=== PATIENT | female | born 1955 | race Caucasian/White ===

== ENCOUNTER 2018-03-10 06:57 | Emergency (ER) | payer BC, OTHER ==
[~2018-03-10] VITALS: Ht 160 cm; Wt 90.7 kg
[~2018-03-10 06:57] MED LIST: CELEXA PO; DEXILANT60 MG PO; ELAVIL PO; LABETALOL HCL200 MG PO; LIVALO2 MG; PREMARIN0.3 MG PO; URIBEL CAPSULE1 EACH PO; VALIUM5 MG; VICODIN ES 7.51 EACH; WELLBUTRIN XL300 MG PO; ZANTAC150 MG
--- OUTSIDE RECORDS SUMMARY | 2018-03-10 07:01 | XMS REPORT | Summary of Care ---
Author Author [facility] Address Unknown Phone Unavailable Encounter HQ Amir_eugenie([facility]) [id number] Date(s): 01/31/16 - 02/29/16 [facility] Discharge Disposition: Home or Self Care Attending Physician: Anurag King Vital Signs No data available for this section Problem List No data available for this section Allergies, Adverse Reactions, Alerts No data available for this section Medications No data available for this section Results No data available for this section Immunizations No data available for this section Procedures No data available for this section Social History No data available for this section Assessment and Plan No data available for this section
--- OUTSIDE RECORDS SUMMARY | 2018-03-10 07:01 | XMS REPORT | Summary of Care ---
Author Author [facility] Address Unknown Phone Unavailable Encounter HQ Jah_eugenie([facility]) [id number] Date(s): 03/27/16 - 04/25/16 [facility] Discharge Disposition: Home or Self Care [...]
--- OUTSIDE RECORDS SUMMARY | 2018-03-10 07:01 | XMS REPORT | Continuity of Care Document ---
Author Author [facility] Interface Address Unknown Phone Unavailable Problems Problem Status Onset Date Classification Date Reported Comments Source [facility] KNEE Active [facility] Medications Medication Details Route Status Patient Instructions Ordering Provider Order Date Source Allergies, Adverse Reactions, Alerts Substance Category Reaction Severity Reaction type Status Date Reported Comments Source Immunizations Immunization Date Given Site Status Last Updated Comments Source Results Order Name Results Value Reference Range Date Interpretation Comments Source Vital Signs Vital Sign Value Date Comments Source Encounters Location Location Details Encounter Type Encounter Number Reason For Visit Attending Provider ADM Date DC Date Status Source [facility] [place] [facility] [id number] Anurag King 12/30/2015 01/29/2016 [facility] [place] [facility] [place] [facility] [id number] Anurag King 01/31/2016 03/01/2016 [facility] [id number] Anurag King 03/27/2016 04/26/2016 [facility] Procedures Procedure Code Date Perfomer Comments Source
--- OUTSIDE RECORDS SUMMARY | 2018-03-10 07:01 | XMS REPORT | Summary of Care ---
Author Author [facility] Address Unknown Phone Unavailable Encounter HQ Amir_eugenie([facility]) [id number] Date(s): 12/30/15 - 01/28/16 [facility] Discharge Disposition: Home or Self Care Attending [...]
[2018-03-10] MEDS ORDERED: KETOROLAC TROMETHAMINE 30 MG/ML VIAL IV STA (07:14)
[2018-03-10] MEDS ORDERED: SODIUM CHLORIDE 0.9% 1000ML 1,000 ML IV SCH (07:15)
[2018-03-10 07:39] LABS: BASOPHILS # (AUTO) 0.1 (0.0-0.1); BASOPHILS % 0.5 % (0.0-1.0); EOSINOPHILS # (AUTO) 0.2 (0.0-0.4); EOSINOPHILS % 1.5 % (0.0-6.0); HEMATOCRIT 39.8 % (34.2-44.1); HEMOGLOBIN 13.5 g/dL (12.0-16.0); LYMPHOCYTES # (AUTO) 1.4 (1.0-3.2); LYMPHOCYTES % 13.6 % (18.0-39.1); MEAN CORPUSCULAR HGB CONC 33.9 g/dL (31-35); MEAN CORPUSCULAR VOLUME 94.3 fL (81-99); MONOCYTES # (AUTO) 0.7 (0.2-0.8); MONOCYTES % 6.8 % (4.4-11.3); PLATELET COUNT 216 x10e3/uL (140-360); RED BLOOD COUNT 4.22 x10e6/uL (3.6-5.1); RED CELL DISTRIBUTION WIDTH 13.1 % (11.7-14.4)
--- NOTE | 2018-03-10 07:50 | NUR ---
INFORMED PT OF MORPHINE ORDERS, PAIN LEVEL CURRENTLY 2/10, REFUSED MEDICATION AT THIS TIME.
[2018-03-10 07:51] LABS: BILIRUBIN,URINE NEGATIVE (NEGATIVE); CLARITY,URINE CLEAR (CLEAR); COLOR,URINE ORANGE (YELLOW); KETONES,URINE NEGATIVE (NEGATIVE); LEUKOCYTE ESTERASE ,URINE TRACE (NEGATIVE); NITRITE,URINE POSITIVE (NEGATIVE); PROTEIN,URINE DIPSTICK 1+ (NEGATIVE); URINE UROBILINOGEN 4 mg/dL (0.2 - 1)
[2018-03-10 07:57] LABS: BACTERIA,URINE RARE /HPF; EPITHELIAL CELLS,URINE FEW /LPF; WBC,URINE (MAN) 0-5 /HPF (0-5)
[2018-03-10 07:58] LABS: ALBUMIN/GLOBULIN RATIO 1.5 (0.8-2.0); ANION GAP 14.6 mmol/L (8-16); CALCIUM 9.7 mg/dL (8.4-10.2); CREATININE, SERUM 0.95 mg/dL (0.57-1.11); POTASSIUM 4.6 mmol/L (3.5-5.1); YEAST,URINE RARE
--- NOTE | 2018-03-10 08:07 | Diagnostic Imaging Report ---
EXAMINATION: CT of the abdomen and pelvis without contrast. TECHNIQUE: Spiral CT images of the abdomen and pelvis were performed from the lung bases to the lesser trochanters. No intravenous contrast was given per renal stone protocol. Coronal and sagittal reformatted images were obtained. COMPARISON: None. CLINICAL HISTORY:Left flank pain DISCUSSION: ABSENCE OF INTRAVENOUS CONTRAST DECREASES SENSITIVITY FOR DETECTION OF FOCAL LESIONS AND VASCULAR PATHOLOGY. ABDOMEN/PELVIS: LOWER THORAX: Linear scar or subsegmental atelectasis in the right lower lobe. HEPATOBILIARY:Hepatic parenchyma is diffusely hypoattenuating compatible with steatosis. No focal hepatic lesion. Status post cholecystectomy with metallic clips in the gallbladder fossa. SPLEEN: No splenomegaly. PANCREAS: No focal masses or ductal dilatation. ADRENALS: No adrenal nodules. KIDNEYS/URETERS: Mild left hydroureteronephrosis related to a 4 mm distal ureteral calculus (series 3 image 153). Mild perinephric inflammation. Punctate nonobstructing left upper pole renal calculus series 3 image 49. No right renal or right ureteral calculi. No solid or cystic gross renal mass lesions. Exophytic subcentimeter hypoattenuating lesion projecting from the lower pole of the right kidney is too small to further characterize though likely to represent a small cyst. PELVIC ORGANS/BLADDER: The urinary bladder is collapsed but otherwise unremarkable. The uterus is not identified and has presumably been resected. No adnexal mass. PERITONEUM/RETROPERITONEUM: No ascites. No pneumoperitoneum. LYMPH NODES: No pelvic sidewall, retroperitoneal, or mesenteric lymphadenopathy. VESSELS: The abdominal aorta is nonaneurysmal. Atherosclerotic calcification of the abdominal pelvic arterial system. Evaluation is otherwise limited in the absence of intravenous contrast. GI TRACT: The large bowel shows no evidence of distention or wall thickening the appendix is normal. There is no small bowel dilatation to suggest obstruction. BONES AND SOFT TISSUES: No focal soft tissue abnormalities. No osseous destructive lesions. Degenerative disc changes and facet arthropathy of the lumbar spine. IMPRESSION: 4 mm distal left ureteral calculus results in mild hydroureteronephrosis and perinephric inflammation. Hepatic steatosis. Atherosclerotic vascular disease. Signed by: Dr. Dany Ortiz M.D. on 03/10/2018 8:03 AM
[2018-03-10] MEDS ORDERED: MORPHINE SULFATE 5 MG/ML VIAL IV ONE (08:15)
[2018-03-10] MEDS ORDERED: MORPHINE SULFATE INJ 4 MG/ML INJ IV NR (08:30)
[2018-03-10] MEDS ORDERED: PHENAZOPYRIDINE HCL 100 MG TAB PO SCH (09:00)
[2018-03-10] MEDS ORDERED: CEFTRIAXONE SOD 1 GM/NS 50 ML 50 ML IV ONE (10:15)
[2018-03-10 11:02] VITALS: BP 146/62
[2018-03-10] MEDS ORDERED: HYDROMORPHONE 2MG/ML 2 MG/ML ML IV ONE (12:30)
== END 2018-03-10 11:15 | disposition home or self-care (01) ==
LOC: ER 06:57
DX: R30.0 Dysuria (principal); M54.5 Low back pain; N30.90 Cystitis, unspecified without hematuria; N20.0 Calculus of kidney; I10 Essential (primary) hypertension
CPT/HCPCS: 36415; 74176; 80053; 81001; 85025; 99284; J0696; J1170; J1885; J2270; J7030

== ENCOUNTER → 2021-02-14 | Outpatient (CLI) | payer MEDICARE, BC | LOC: MRI 12:48 | PROVIDERS: ATTEND Pain Medicine Pain Medicine | DX: M47.896 Other spondylosis, lumbar region (principal) | CPT/HCPCS: 72148 ==

== ENCOUNTER → 2024-04-20 | Outpatient (REF) | payer MEDICARE, BC | LOC: MRI 13:21 | PROVIDERS: ATTEND Pain Medicine Pain Medicine | DX: M54.16 Radiculopathy, lumbar region (principal) | CPT/HCPCS: 72148 ==